=== PATIENT | male | born 1950 | race Caucasian/White ===

== ENCOUNTER 2018-07-14 09:18 | Outpatient (CLI) | payer MEDICARE, BC | END 2018-07-14 09:19 | disposition critical access hospital (66) | LOC: EMS 09:18 | PROVIDERS: ATTEND Surgery | DX: R07.9 Chest pain, unspecified (principal) | CPT/HCPCS: A0425; A0427 ==

== ENCOUNTER 2018-07-14 09:47 | Emergency (ER) | payer MEDICARE, BC ==
--- NOTE | 2018-07-14 09:57 | ED Physician Documentation ---
PD HPI CHEST PAIN - Stated complaint Stated Complaint: CP - Chief complaint Chief Complaint: Cardiac - History obtained from History obtained from: Patient - History of Present Illness Timing - onset: Enter time (0800), Today Timing - onset during: Rest Timing - duration: Minutes Timing - details: Abrupt onset, Now resolved Pain level max: 6 Pain level now: 2 Quality: Pressure, Tightness, Sharp Location: Substernal, Right chest Radiation: Back Improved by: Rest, ASA Worsened by: Inspiration, Movement Associated symptoms: No: Shortness of air, Diaphoresis, Nausea, Vomiting, Feeling faint / dizzy, General Weakness, Palpitations, Cough Similar symptoms before: Has not had sx before Recently seen: Not recently seen - Additional information Additional information: 67-year-old previously well male was sitting on his couch this morning when he developed right-sided chest pain. He states that his worse to take a deep breath and the pain radiated to his back. He states that he had been up at about 8:00 this morning was feeling well when he awoke and had this happen to him after he was up and about for his day. He denies any eating anything prior to the onset of the symptoms. He has not had the specific symptoms previously. He does rate the pain as a 6 on arrival to the emergency department. Patient is under a lot of stress because of the of his 's mother. He has been drinking more than usual and had a fair amount to drink last night. He has not had this reaction from drinking previously. He denies any gallbladder disease. Review of Systems Constitutional: denies: Fever, Chills, Myalgias Eyes: denies: Decreased vision Ears: denies: Ear pain Nose: denies: Rhinorrhea / runny nose, Congestion Throat: denies: Sore throat Cardiac: reports: Chest pain / pressure. denies: Palpitations, Pedal edema, Calf pain Respiratory: denies: Dyspnea, Cough, Wheezing GI: denies: Abdominal Pain, Abdominal Swelling, Nausea, Vomiting : denies: Dysuria, Frequency Skin: denies: Rash Musculoskeletal: denies: Neck pain, Back pain, Extremity pain Neurologic: denies: Generalized weakness, Focal weakness, Numbness PD PAST MEDICAL HISTORY - Past Medical History Cardiovascular: None Respiratory: None Endocrine/Autoimmune: None GI: None : None HEENT: None Psych: None Musculoskeletal: None Derm: None - Present Medications Home Medications: Ambulatory Orders Medication Instructions Recorded Confirmed No Known Home Medications 07/14/18 07/14/18 - Allergies Allergies/Adverse Reactions: Allergies Allergy/AdvReac Type Severity Reaction Status Date / Time No Known Drug Allergies Allergy Verified 07/14/18 09:53 PD ED PE NORMAL - Vitals Vital signs reviewed: Yes (hypertensive marked ) - General General: Alert and oriented X 3, No acute distress, Well developed/nourished - HEENT HEENT: Atraumatic, PERRL, EOMI - Neck Neck: Supple, no meningeal sign, No bony TTP - Cardiac Cardiac: RRR, No murmur - Respiratory Respiratory: No respiratory distress, Clear bilaterally - Abdomen Abdomen: Soft, Non tender - Back Back: No CVA TTP, No spinal TTP - Derm Derm: Normal color, Warm and dry, No rash - Extremities Extremities: No deformity, No edema - Neuro Neuro: Alert and oriented X 3, videotape operator 2-12 intact, No motor deficit, No sensory deficit, Normal speech Eye Opening: Spontaneous Motor: Obeys Commands Verbal: Oriented GCS Score: 15 - Psych Psych: Normal mood, Normal affect Results - Vitals Vitals: Vital Signs - 24 hr 07/14/18 07/14/18 07/14/18 09:48 11:18 12:23 Temperature 36.6 C 36.7 C 37.1 C Heart Rate 73 73 63 Respiratory 20 15 20 Rate Blood Pressure 153/109 H 148/89 H 145/95 H O2 Saturation 97 97 97 Oxygen O2 Source Room air - EKG (time done) 0949 Rhythm: NSR Ischemia: Normal ST segments Compare to prior EKG: Old EKG unavailable Computer interpretation: Agree with computer - Labs Labs: Laboratory Tests 07/14/18 07/14/18 07/14/18 10:30 10:30 10:30 WBC 6.0 RBC 5.00 Hgb 16.2 Hct 46.9 MCV 93.8 MCH 32.5 H MCHC 34.6 RDW 13.7 Plt Count 187 MPV 7.3 L Neut # (Auto) 4.4 Lymph # (Auto) 1.1 L Ector # (Auto) 0.5 Eos # (Auto) 0.0 Baso # (Auto) 0.0 Absolute Nucleated RBC 0.00 Nucleated RBC % 0.0 D-Dimer Sodium 136 Potassium 4.3 Chloride 103 Carbon Dioxide 24 Anion Gap 9.0 BUN 14 Creatinine 0.7 Estimated GFR (MDRD) 113 Glucose 109 H Calcium 8.9 Total Bilirubin 1.1 H AST 19 ALT 25 Alkaline Phosphatase 43 Troponin I < 0.04 Total Protein 6.7 Albumin 4.1 Globulin 2.6 Albumin/Globulin Ratio 1.6 Lipase 28 07/14/18 10:30 WBC RBC Hgb Hct MCV MCH MCHC RDW Plt Count MPV Neut # (Auto) Lymph # (Auto) Ector # (Auto) Eos # (Auto) Baso # (Auto) Absolute Nucleated RBC Nucleated RBC % D-Dimer < 200.0 L Sodium Potassium Chloride Carbon Dioxide Anion Gap BUN Creatinine Estimated GFR (MDRD) Glucose Calcium Total Bilirubin AST ALT Alkaline Phosphatase Troponin I Total Protein Albumin Globulin Albumin/Globulin Ratio Lipase - Rads (name of study) 2 veiw chest Radiology: Prelim report reviewed (Impression: Normal two-view chest radiography.), EMP read indepedently, See rad report Procedures - Bedside sono Bedside sono by EMP: With use of bedside ultrasound the right upper quadrant is imaged showing a sonographically nontender gallbladder without evidence of stone internally or thickening of the gallbladder wall. PD MEDICAL DECISION MAKING - ED course Complexity details: reviewed old records, reviewed results, re-evaluated patient, considered differential, d/w patient ED course: 67-year-old male with a history of right sided chest pain has resolved symptoms on arrival to the emergency department he has normal-appearing electrocardiogram and cardiac enzymes and a normal appearing chest x-ray. He did have an inspirational component to the pain. Patient offers further history and that he is under a significant amount of stress with his 's family having to deal with the of the patient's 's mother and the ramifications of this regarding the mother's long 's children and money. Departure - Departure Disposition: 01 Home, Self Care Clinical Impression: Atypical chest pain Condition: Stable Instructions: ED Stress React, ED Chest Pain Atypical Unkn Cause Follow-Up: Cielo Ordaz ARNP [Primary Care Provider] - Discharge Date/Time: 07/14/18 12:24
[2018-07-14] MEDS ORDERED: SODIUM CHLORIDE 0.9% 1,000 ML IV ONE (10:00)
--- NOTE | 2018-07-14 10:29 | XRAY Report ---
Reason: right sided chest pain Procedure Date: 07/14/2018 Accession Number: [id number] / [id number] Procedure: XR - Chest 2 View X-Ray CPT Code: 36575 FULL RESULT: EXAM: CHEST RADIOGRAPHY EXAM DATE: 07/14/2018 10:17 AM. CLINICAL HISTORY: Right sided chest pain. COMPARISON: None. TECHNIQUE: 2 views. FINDINGS: Lungs/Pleura: No focal opacities evident. No pleural effusion. No pneumothorax. Normal volumes. Mediastinum: Heart and mediastinal contours are unremarkable. Other: None. IMPRESSION: Normal 2-view chest radiography. [facility]
[2018-07-14 10:35] LABS: BASOPHILS % (AUTO) 0.6 %; EOSINOPHILS % (AUTO) 0.4 %; HGB - HEMOGLOBIN 16.2 g/dL (14.0-18.0); LYMPHOCYTES # (AUTO) 1.1 10^3/uL (1.5-3.5); LYMPHOCYTES % (AUTO) 17.6 %; MEAN CORPUSCULAR HEMOGLOBIN 32.5 pg (27.0-31.0); MEAN CORPUSCULAR HGB CONC 34.6 g/dL (32.0-36.0); MEAN CORPUSCULAR VOLUME 93.8 fL (80.0-94.0); MEAN PLATELET VOLUME 7.3 fL (7.4-11.4); MONOCYTES # (AUTO) 0.5 10^3/uL (0.0-1.0); MONOCYTES % (AUTO) 7.8 %; NEUTROPHILS # (AUTO) 4.4 10^3/uL (1.5-6.6); NEUTROPHILS % (AUTO) 73.6 %; PLT - PLATELET COUNT 187 10^3/uL (130-450); RED CELL DISTRIBUTION WIDTH 13.7 % (12.0-15.0)
[2018-07-14 10:49] LABS: ALBUMIN 4.1 g/dL (3.2-5.5); ALBUMIN/GLOBULIN RATIO 1.6 (1.0-2.2); BILIRUBIN,TOTAL 1.1 mg/dL (0.2-1.0); CALCIUM 8.9 mg/dL (8.5-10.3); CREATININE 0.7 mg/dL (0.6-1.2); TOTAL PROTEIN 6.7 g/dL (6.7-8.2)
[2018-07-14 12:24] VITALS: BP 145/95
== END 2018-07-14 12:24 | disposition home or self-care (01) ==
LOC: EDUNIT# → ED 09:47
DX: R07.89 Other chest pain (principal)
CPT/HCPCS: 36415; 71046; 80053; 83690; 84484; 85025; 85379; 93005; 96360; 99283; 99284

== ENCOUNTER 2020-02-18 07:51 | Outpatient (CLI) | payer MEDICARE, BC ==
[2020-02-18 15:41] LABS: BASOPHILS % (AUTO) 0.9 %; EOSINOPHILS # (AUTO) 0.1 10^3/uL (0.0-0.7); HGB - HEMOGLOBIN 15.8 g/dL (14.0-18.0); LYMPHOCYTES # (AUTO) 1.2 10^3/uL (1.5-3.5); LYMPHOCYTES % (AUTO) 35.9 %; MEAN CORPUSCULAR HEMOGLOBIN 31.2 pg (27.0-31.0); MEAN CORPUSCULAR HGB CONC 32.8 g/dL (32.0-36.0); MEAN CORPUSCULAR VOLUME 95.1 fL (80.0-94.0); MEAN PLATELET VOLUME 9.8 fL (7.4-11.4); MONOCYTES # (AUTO) 0.4 10^3/uL (0.0-1.0); MONOCYTES % (AUTO) 10.4 %; NEUTROPHILS # (AUTO) 1.7 10^3/uL (1.5-6.6); NEUTROPHILS % (AUTO) 50.2 %; PLT - PLATELET COUNT 232 10^3/uL (130-450); RED BLOOD COUNT 5.06 10^6/uL (4.70-6.10); RED CELL DISTRIBUTION WIDTH 13.8 % (12.0-15.0); WHITE BLOOD COUNT 3.5 x10^3/uL (4.8-10.8)
[2020-02-18 16:03] LABS: PSA TOTAL 2.7 ng/mL (0.000-2.000)
[2020-02-18 16:28] LABS: PSA FREE 0.28 ng/mL (0.16-2.81)
== END 2020-02-18 07:52 | disposition home or self-care (01) ==
LOC: LAB.S 07:51
PROVIDERS: ATTEND Registered Nurse
DX: E29.1 Testicular hypofunction (principal)
CPT/HCPCS: 36415; 81599; 84153; 84154; 84402; 84403; 85025

== ENCOUNTER 2023-02-20 08:03 | Outpatient (CLI) | payer MEDICARE, BC ==
--- NOTE | 2023-02-20 12:45 | Ultrasound Report ---
PROCEDURE: Aorta Screening INDICATIONS: AAA SCREENING TECHNIQUE: Real time scanning was performed of the aorta and iliac arteries, with image documentatio n. COMPARISON: None. FINDINGS: Aorta: Proximal aortic diameter measures 2.6 x 2.4 cm. Mid-aorta measures 1.8 x 1.7 cm. Distal aor tic diameter is 2.0 x 1.6 cm. Iliac arteries: Right common iliac artery measures 1.2 cm. Left common iliac artery measures 1.3 cm . IMPRESSION: No abdominal aortic aneurysm. Ectatic proximal aorta, consider 5 year follow-up. Reviewed by: Sammy Owens MD on 02/20/2023 12:44 PM PDT Approved by: Sammy Owens MD on 02/20/2023 12:44 PM PDT Station ID: [id number]
== END 2023-02-20 08:04 | disposition home or self-care (01) ==
LOC: DI 08:03
PROVIDERS: ATTEND Registered Nurse
DX: Z13.6 Encounter for screening for cardiovascular disorders (principal); I77.819 Aortic ectasia, unspecified site

== ENCOUNTER 2023-09-24 08:33 | Inpatient (IN) | payer MEDICARE, BC ==
[2023-09-24] MEDS ORDERED: MORPHINE 2 MG/ML CARPUJECT IVP STA (09:17)
[2023-09-24] MEDS ORDERED: SODIUM CHLORIDE 0.9% 1,000 ML IV STA ×2 (09:17→16:13)
[2023-09-24] MEDS ORDERED: ONDANSETRON 4 MG/2 ML VIAL IVP STA (09:17)
--- NOTE | 2023-09-24 09:20 | ED Physician Documentation ---
History of Present Illness - Stated complaint Stated Complaint: ABD PX - Chief complaint Chief Complaint: Abd Pain - Additonal information Additional information: Patient 72-year-old male presenting to the emergency department with chief com plaint abdominal pain. Presents accompanied by his with 1 day history epigastric abdominal pain that was associated with nausea vomiting. Pain began yesterday evening at approximately 8 PM. No other family members are experiencing similar symptoms. Reports pain kept him up most of the night and he did have an episode of nausea and vomiting this morning. Vomiting was nonbloody and nonbilious. He also had a normal color/normal caliber bowel movement this morning. He denies any chest pain, diaphoresis or shortness of breath associated with his symptoms. Denies any past surgical history. His only medication right now is testosterone cream and he reports 5 years of steady use for testosterone replacement therapy. Review of Systems Constitutional: denies: Fever Eyes: denies: Loss of vision Ears: denies: Loss of hearing Nose: denies: Rhinorrhea / runny nose Throat: denies: Dental pain / toothache Cardiac: denies: Chest pain / pressure Respiratory: denies: Dyspnea GI: reports: Abdominal Pain, Nausea, Vomiting : denies: Dysuria PD PAST MEDICAL HISTORY - Past Medical History Cardiovascular: None Respiratory: None Endocrine/Autoimmune: None GI: None : None HEENT: None Psych: None Musculoskeletal: None Derm: None - Past Surgical History Past Surgical History: Yes Ortho: Spine surgery - Present Medications Home Medications: Ambulatory Orders Medication Instructions Recorded Confirmed No Known Home Medications 07/14/18 07/14/18 - Allergies Allergies/Adverse Reactions: Allergies Allergy/AdvReac Type Severity Reaction Status Date / Time No Known Drug Allergies Allergy Verified 07/14/18 09:53 - Social History Does the pt smoke?: No Smoking Status: Never smoker PD ED PE NORMAL - Vitals Vital signs reviewed: Yes (WNL) - General General: Alert and oriented X 3, No acute distress - HEENT HEENT: Atraumatic - Neck Neck: Supple, no meningeal sign - Cardiac Cardiac: RRR, No gallop, Strong equal pulses - Respiratory Respiratory: No respiratory distress, Clear bilaterally - Abdomen Abdomen: Normal bowel sounds, Soft. No: Non tender (Epigastric tenderness) - Male Male : Deferred - Rectal Rectal: Deferred - Derm Derm: Normal color - Extremities Extremities: No deformity - Neuro Neuro: Alert and oriented X 3, water fabricator operator 2-12 intact, No motor deficit, Normal speech Results - Vitals Vitals: Vital Signs - 24 hr 09/24/23 09/24/23 09/24/23 09:07 11:46 13:00 Temperature 36.2 C L Heart Rate 89 77 80 Respiratory 15 18 18 Rate Blood Pressure 146/66 H 174/94 H 119/90 H O2 Saturation 98 98 96 09/24/23 09/24/23 09/24/23 15:36 16:26 20:15 Temperature 37.4 C 36.4 C L Heart Rate 90 86 76 Respiratory 18 18 18 Rate Blood Pressure 138/88 H 163/101 H 135/83 H O2 Saturation 97 95 96 09/24/23 09/25/23 09/25/23 22:00 00:00 02:00 Temperature Heart Rate 79 62 74 Respiratory 13 19 16 Rate Blood Pressure 146/76 H 109/75 139/94 H O2 Saturation 95 95 93 09/25/23 09/25/23 04:00 06:00 Temperature Heart Rate 60 65 Respiratory 17 16 Rate Blood Pressure 126/71 124/62 O2 Saturation 94 95 Oxygen O2 Source Room air - EKG (time done) 0935 EKG releavant findings:: EKG personally interpreted by author of this note. Relevant findings are: Sinus rhythm with rate 66 bpm. Normal axis. Parable prolonged at 223 ms. Normal QRS and QTc intervals. No ST segment elevations or T wave inversions. - Labs Labs: Laboratory Tests 09/24/23 09/24/23 09/24/23 09:33 09:33 09:33 WBC 7.7 RBC 4.91 Hgb 15.7 Hct 46.5 MCV 94.7 H MCH 32.0 H MCHC 33.8 RDW 13.1 Plt Count 199 MPV 9.2 Neut # (Auto) 6.9 H Lymph # (Auto) 0.4 L Meagher # (Auto) 0.4 Eos # (Auto) 0.0 Baso # (Auto) 0.0 Absolute Nucleated RBC 0.00 Nucleated RBC % 0.0 Sodium 136 Potassium 4.3 Chloride 103 Carbon Dioxide 26 Anion Gap 7.0 BUN 20 Creatinine 0.7 Estimated GFR (MDRD) 111 Glucose 141 H Lactic Acid 0.6 Calcium 9.3 Total Bilirubin 0.7 AST 14 ALT 20 Alkaline Phosphatase 35 L Troponin I High Sens Total Protein 6.8 Albumin 4.5 Globulin 2.3 Albumin/Globulin Ratio 2.0 Lipase 26 09/24/23 09/25/23 09/25/23 09:33 05:15 05:15 WBC 6.3 RBC 4.34 L Hgb 13.9 L Hct 41.0 L MCV 94.5 H MCH 32.0 H MCHC 33.9 RDW 13.0 Plt Count 176 MPV 9.4 Neut # (Auto) 4.4 Lymph # (Auto) 1.3 L Meagher # (Auto) 0.6 Eos # (Auto) 0.0 Baso # (Auto) 0.0 Absolute Nucleated RBC 0.00 Nucleated RBC % 0.0 Sodium 140 Potassium 3.8 Chloride 106 Carbon Dioxide 28 Anion Gap 6.0 BUN 15 Creatinine 0.8 Estimated GFR (MDRD) 96 Glucose 94 Lactic Acid Calcium 8.4 L Total Bilirubin AST ALT Alkaline Phosphatase Troponin I High Sens 2.3 Total Protein Albumin Globulin Albumin/Globulin Ratio Lipase PD Medical Decision Making - ED course Complexity details: reviewed old records, reviewed results, re-evaluated patient, d/w patient, d/w production consultant ED course: Patient 72-year-old male presenting to the emergency department with abdominal pain with associated nausea vomiting. Symptoms ongoing x 1 day. Denies previous symptoms in the past. On arrival to the emergency department, afebrile, hemodynamically stable. Notably had some epigastric tenderness but no guarding, rebound, rigidity or indications of peritonitis. Comprehensive labs obtained, generally within normal limits or nonactionable. No significant electrolyte abnormality or elevation in lactic acid. CT of the abdomen pelvis however demonstrates dilated loops of bowel with clear transition point consistent with small bowel obstruction. Results discussed with patient and family. NG tube placed. Started on maintenance fluids. He was given medication for pain control and monitor carefully after its administration. Additionally his care was discussed with Dr. Fermin, general surgery who evaluated the patient independently. Please see their documentation for further detail. At this time unfortunately there are no beds available at our facility or regionally. He will be boarded in the emergency department pending an appropriate MedSur bed. I will be signing him out to the oncoming physician, please see their documentation for further detail. Departure - Departure Disposition: 66 [facility] DC/Xfer Clinical Impression: SBO (small bowel obstruction) Forms: PCP List
[2023-09-24 09:39] LABS: BASOPHILS % (AUTO) 0.3 %; HCT - HEMATOCRIT 46.5 % (42.0-52.0); HGB - HEMOGLOBIN 15.7 g/dL (14.0-18.0); LYMPHOCYTES # (AUTO) 0.4 10^3/uL (1.5-3.5); MEAN CORPUSCULAR HGB CONC 33.8 g/dL (32.0-36.0); MEAN CORPUSCULAR VOLUME 94.7 fL (80.0-94.0); MEAN PLATELET VOLUME 9.2 fL (7.4-11.4); MONOCYTES # (AUTO) 0.4 10^3/uL (0.0-1.0); NEUTROPHILS # (AUTO) 6.9 10^3/uL (1.5-6.6); NEUTROPHILS % (AUTO) 89.3 %; PLT - PLATELET COUNT 199 10^3/uL (130-450); RED BLOOD COUNT 4.91 10^6/uL (4.70-6.10); RED CELL DISTRIBUTION WIDTH 13.1 % (12.0-15.0); WHITE BLOOD COUNT 7.7 x10^3/uL (4.8-10.8)
[2023-09-24 09:52] LABS: ALBUMIN 4.5 g/dL (3.2-5.5); BILIRUBIN,TOTAL 0.7 mg/dL (0.2-1.0); CALCIUM 9.3 mg/dL (8.5-10.3); CREATININE 0.7 mg/dL (0.6-1.3); POTASSIUM 4.3 mmol/L (3.5-4.5); TOTAL PROTEIN 6.8 g/dL (6.4-8.9)
--- NOTE | 2023-09-24 10:51 | CT Report ---
PROCEDURE: Abdomen/Pelvis W INDICATIONS: Epigastric abd pain CONTRAST: Omni 300 100ml TECHNIQUE: After the administration of intravenous contrast, a CT scan of the abdomen and pelvis was performed. Images were recorded and evaluated at appropriate window settings. Reformats: coronal and sagittal. F or radiation dose reduction, the following was used: automated exposure control, adjustment of mA and /or kV according to patient size. COMPARISON: Correlation is made with ultrasound, 09/22/2022. FINDINGS: Image quality: Excellent. Lung bases and heart: Unremarkable. Liver: No solid mass. Gallbladder and biliary tree: Within normal limits. Spleen: No splenomegaly. Pancreas: No pancreatic ductal dilation. Adrenals: No adrenal nodule. Kidneys and ureters: Mild bilateral hydronephrosis is seen. No cause of obstruction is seen. There is a pelvic phlebolith seen adjacent to the right distal ureter, yet not involving the distal ureter. T he kidneys demonstrate normal size and enhance symmetrically. Bowel and peritoneum: Dilated fluid-filled loops of small bowel can be seen proximally that measure u p to 3.2 cm. The distal small bowel loops are decompressed. There is a transition point seen within t he right lower quadrant, where thickened, hyperenhancing small bowel can be seen. No free air is seen. Minimal ascites is seen involving the right lower quadrant. No abscess is seen. Diverticulosis can be seen, without luis findings of active diverticulitis. No significant colonic abnormality is seen. Lymph nodes: No central or retroperitoneal adenopathy. Vessels: No infrarenal aortic aneurysm. PELVIS Reproductive organs: Unremarkable. Bladder: No abnormal wall thickening, accounting for underdistention. Pelvic lymph nodes: No pelvic adenopathy by size criteria. Bones: No aggressive osseous abnormality. Age-appropriate degenerative changes are seen. Other: There is a mild fat-containing left inguinal hernia. IMPRESSION: There is a small obstruction, with the transition point seen within the right lower quadrant, where t hickened, hyperenhancing small bowel can be seen. Mild bilateral hydronephrosis is seen, without a cause of hydronephrosis identified. Additional findings: Diverticulosis, without findings of active diverticulitis. Mild fat-containing left inguinal hernia Reviewed by: Tobi Stearns MD on 09/24/2023 9:50 AM [facility] Approved by: Tobi Stearns MD on 09/24/2023 9:50 AM [facility] Station ID: [id number]
[2023-09-24] MEDS ORDERED: LORazepam 2 MG/ML VIAL IVP STA (11:34)
[2023-09-24] MEDS ORDERED: iohexoL-300 100 ML VIAL IVP ONE (12:05)
--- NOTE | 2023-09-24 13:11 | XRAY Report ---
PROCEDURE: No-Charge 1V Abdomen INDICATIONS: NG Tube placement TECHNIQUE: 1 view of the abdomen were acquired. COMPARISON: Correlation is made with abdomen and pelvis CT, 09/24/2023. FINDINGS: Surgical changes and devices: The tip of the gastric tube can be seen overlying the fundus of the st omach. Bowel: No pneumoperitoneum. The bowel gas pattern is normal. Stool load within normal limits. Soft tissues: No masses; visualized solid organ contours appear normal in size. No suspicious abdom inal calcifications. Excreting contrast can be seen within the renal collecting systems. Bones: No suspicious bony abnormalities. IMPRESSION: The tip of the gastric tube can be seen overlying the fundus of the stomach. Reviewed by: Tobi Stearns MD on 09/24/2023 12:10 PM [facility] Approved by: Tobi Stearns MD on 09/24/2023 12:10 PM [facility] Station ID: [id number]
[2023-09-24] MEDS ORDERED: ONDANSETRON 4 MG/2 ML VIAL IVP PRN (16:13)
[2023-09-24] MEDS ORDERED: ACETAMINOPHEN 1,000 MG/100 ML 1,000 MG/100 ML BAG IV ONE (16:30)
[2023-09-24] MEDS ORDERED: PANTOPRAZOLE 40 MG TABLET PO SCH (17:00)
--- NOTE | 2023-09-24 18:09 | HISTORY & PHYSICAL EXAMINATION ---
Chief Complaint - Chief Complaint Chief Complaint: abdominal pain and nausea and vomiting. History of Present Illness - History Obtained From Records Reviewed: yes History obtained from: pt Exam Limitations: none - History of Present Illness HPI Comment/Other: abdominal pain yesterday with nausea and vomiting. small bm this am with flatus. no prior similar symptoms. no prior abdominal surgery. seen in ED. ngt placed. he feels very well now. no abdominal pain. here with his who feels well. History - Past Medical History Cardiovascular: reports: None Respiratory: reports: None Endocrine/Autoimmune: reports: None GI: reports: None : reports: None HEENT: reports: None Psych: reports: None Musculoskeletal: reports: None Derm: reports: None MRSA Hx?: No - Past Surgical History Ortho: reports: Spine surgery Meds/Allgy - Home Medications Home Medications: Ambulatory Orders Medication Instructions Recorded Confirmed No Known Home Medications 07/14/18 07/14/18 - Allergies Allergies/Adverse Reactions: Allergies Allergy/AdvReac Type Severity Reaction Status Date / Time No Known Drug Allergies Allergy Verified 07/14/18 09:53 Review of Systems - Other Findings Other Findings: 10 pt ros as above otherwise unremarkable Exam - Vital Signs Reviewed Vital Signs: Yes Vital Signs: Vital Signs x48h Temp Pulse Resp BP Pulse Ox 09/24/23 16:26 37.4 C 86 18 163/101 H 95 09/24/23 15:36 90 18 138/88 H 97 09/24/23 13:00 80 18 119/90 H 96 09/24/23 11:46 77 18 174/94 H 98 - Physical Exam General Appearance: positive: No acute distress, Alert Eyes Bilateral: positive: PERRL, EOMI ENT: positive: No signs of dehydration Neck: positive: No JVD, Trachea midline Respiratory: positive: No respiratory distress Cardiovascular: positive: Regular rate & rhythm Abdomen: positive: No distention Neurologic/Psychiatric: positive: Oriented x3 Conclusion/Plan - Problem List (1) Nausea & vomiting Conclusion/Plan: nausea and vomiting earlier today with pain starting yesterday. no prior similar symptoms and no prior surgery. he has a ngt in. scant dark output. he feels very well. ct scan ileus with 98% of his small bowel distended. normal appendix. I see no evidence of a bowel obstruction. we discussed he has a little extra preperitoneal fat at his left internal inguinal ring. no inguinal hernia clinically. ileus/ enteritis. agree with current care. ngt until talent acquisition associate in color and bowel activity has improved. - Lab Results Fish Bones: 09/24/23 09:33 09/24/23 09:33
[2023-09-24] MEDS ORDERED: KETOROLAC 15 MG/ML VIAL IVP STA (22:35)
[2023-09-25] MEDS ORDERED: HYDROmorphone 0.5 MG/0.5 ML SYRINGE IVP PRN (00:46)
[2023-09-25] MEDS ORDERED: LACTATED RINGERS 1,000 ML IV STA (00:47)
--- NOTE | 2023-09-25 00:50 | ED Physician Documentation ---
ED Addendum - Addendum Addendum: 09/25/23 00:48 The charge nurse on the floor states there anticipated midnight staffing called sick and so they are unable to accept the patient at this time. They should be able to in the morning. We will plan on boarding the patient longer in the ER. As such I ordered interval dosing of ketorolac and as needed dosing for Dilaudid. Already on order is pantoprazole, Zofran. I ordered a maintenance IV fluid of Ringer's lactate at 200 mL/h. A.m. labs had previously been ordered for CBC and chemistry panel. At this point the patient seems comfortable without any vomiting. NG tube in place. We will contact the hospitalist, morning shift for the floor.
[2023-09-25 05:34] LABS: BASOPHILS % (AUTO) 0.3 %; EOSINOPHILS % (AUTO) 0.6 %; HGB - HEMOGLOBIN 13.9 g/dL (14.0-18.0); LYMPHOCYTES # (AUTO) 1.3 10^3/uL (1.5-3.5); LYMPHOCYTES % (AUTO) 20.6 %; MEAN CORPUSCULAR HGB CONC 33.9 g/dL (32.0-36.0); MEAN CORPUSCULAR VOLUME 94.5 fL (80.0-94.0); MEAN PLATELET VOLUME 9.4 fL (7.4-11.4); MONOCYTES # (AUTO) 0.6 10^3/uL (0.0-1.0); MONOCYTES % (AUTO) 9.2 %; NEUTROPHILS # (AUTO) 4.4 10^3/uL (1.5-6.6); PLT - PLATELET COUNT 176 10^3/uL (130-450); RED BLOOD COUNT 4.34 10^6/uL (4.70-6.10); WHITE BLOOD COUNT 6.3 x10^3/uL (4.8-10.8)
[2023-09-25 05:59] LABS: CALCIUM 8.4 mg/dL (8.5-10.3); CREATININE 0.8 mg/dL (0.6-1.3); POTASSIUM 3.8 mmol/L (3.5-4.5)
[2023-09-25] MEDS: KETOROLAC 15 MG/ML VIAL IVP SCH ×3 (06:13→21:36)
--- NOTE | 2023-09-25 08:20 | ED Physician Documentation ---
ED Addendum - Addendum Addendum: 09/25/23 08:20 Patient continues to be boarded in the emergency department. Given IV hydration. Resting comfortably during my evaluation. Awaiting appropriate MedSurg bed. 09/25/23 17:[address] Frankel who graciously agrees to admit the patient for further evaluation and treatment.
[2023-09-25] MEDS ORDERED: ENOXAPARIN 40 MG/0.4 ML SYRINGE SUBQ SCH (09:00)
[2023-09-25] MEDS ORDERED: D5.45NS W/20 MEQ KCL 1,000 ML IV STA (09:27)
--- NOTE | 2023-09-25 09:33 | HISTORY & PHYSICAL EXAMINATION ---
Chief Complaint - Chief Complaint Chief Complaint: Abdominal Pain History of Present Illness - Admitted From Admitted From:: Emergency room. - History of Present Illness HPI Comment/Other: Mr. Tan a 72-year-old male who presents to the emergency room with a chief complaint of abdominal pain. Patient reports that the pain began yesterday evening and in the morning he started to vomit. He denies fevers and chills. He denies chest pain. He has no other complaints at this time. CT of abdomen and abdomen pelvis revealed a small bowel obstruction with a transition point seen within the right lower quadrant. History - Past Medical History Cardiovascular: reports: None Respiratory: reports: None Endocrine/Autoimmune: reports: None GI: reports: None : reports: None HEENT: reports: None Psych: reports: None Musculoskeletal: reports: None Derm: reports: None MRSA Hx?: No - Past Surgical History Ortho: reports: Spine surgery Meds/Allgy - Home Medications Home Medications: Ambulatory Orders Medication Instructions Recorded Confirmed No Known Home Medications 07/14/18 07/14/18 - Allergies Allergies/Adverse Reactions: Allergies Allergy/AdvReac Type Severity Reaction Status Date / Time No Known Drug Allergies Allergy Verified 07/14/18 09:53 Review of Systems - Gastrointestinal Gastrointestinal: reports: Abdominal pain, Abdominal distention Exam - Vital Signs Vital Signs: Vital Signs x48h Pulse Resp BP Pulse Ox 09/25/23 09:03 84 18 137/92 H 96 09/25/23 09:00 71 16 164/90 H 96 09/25/23 06:00 65 16 124/62 95 09/25/23 04:00 60 17 126/71 94 09/25/23 02:00 74 16 139/94 H 93 - Physical Exam General Appearance: positive: No acute distress, Moderate distress Eyes Bilateral: positive: Normal inspection, PERRL, EOMI ENT: positive: ENT inspection nml Neck: positive: Nml inspection, Thyroid nml, No JVD, Lymphadenopathy (R) Respiratory: positive: Chest non-tender, No respiratory distress, Breath sounds nml, Wheezes Cardiovascular: positive: Regular rate & rhythm, No murmur, No gallop Abdomen: positive: Non-tender, No organomegaly Skin: positive: Color nml Extremities: positive: Non-tender Neurologic/Psychiatric: positive: Oriented x3 Conclusion/Plan - Problem List (1) SBO (small bowel obstruction) Conclusion/Plan: Mr. Urias will be admitted to the hospital and treated with gastric decompression with a nasogastric tube. Tube to be placed to intermittent suction. Fluid hydration with D5 half-normal saline with 20 mill equivalents of potassium at 110 mL/h.DVT prophylaxis with heparin 5000 units twice daily - Lab Results Fish Bones: 09/25/23 05:15 09/25/23 05:15
[2023-09-25] MEDS: SODIUM CHLORIDE FLUSH 0.9% 10 ML SYRINGE IVP PRN ×2 (10:39→15:02)
--- NOTE | 2023-09-25 10:52 | PROVIDER PROGRESS NOTE ---
Subjective - General Admit Date: 09/25/23 - Other Other Information/Narrative: NG in place with dark, bilious output. Feeling "much better" this AM. No nausea at this time. Pain 09/27. Denies flatus or BM today. Objective - Patient Data Reviewed Vital Signs: Yes Vital Signs: Vital Signs x48h Temp Pulse Pulse Resp BP BP Pulse Ox 09/25/23 09:48 37.2 C 75 16 143/92 H 95 09/25/23 09:03 84 18 137/92 H 96 09/25/23 09:00 71 16 164/90 H 96 09/25/23 06:00 65 16 124/62 95 09/25/23 04:00 60 17 126/71 94 Weight: Weight 09/23/23 09/24/23 09/25/23 23:59 23:59 23:59 Weight (kg) 77.111 kg 79 kg Intake & Output: Intake and Output Totals x24h 09/23/23 09/24/23 09/25/23 23:59 23:59 23:59 Intake Total 1120 1980 Output Total 750 Balance 1120 1230 - Lab Results Lab Results: 09/25/23 05:15 09/25/23 05:15 Other Lab Results: Lab Results x24hrs 09/25/23 09/25/23 Range/Units 05:15 05:15 WBC 6.3 (4.8-10.8) x10^3/uL RBC 4.34 L (4.70-6.10) 10^6/uL Hgb 13.9 L (14.0-18.0) g/dL Hct 41.0 L (42.0-52.0) % MCV 94.5 H (80.0-94.0) fL MCH 32.0 H (27.0-31.0) pg MCHC 33.9 (32.0-36.0) g/dL RDW 13.0 (12.0-15.0) % Plt Count 176 (130-450) 10^3/uL MPV 9.4 (7.4-11.4) fL Neut # (Auto) 4.4 (1.5-6.6) 10^3/uL Lymph # (Auto) 1.3 L (1.5-3.5) 10^3/uL [place] # (Auto) 0.6 (0.0-1.0) 10^3/uL Eos # (Auto) 0.0 (0.0-0.7) 10^3/uL Baso # (Auto) 0.0 (0.0-0.1) 10^3/uL Absolute Nucleated RBC 0.00 x10^3/uL Nucleated RBC % 0.0 /100WBC Sodium 140 (135-145) mmol/L Potassium 3.8 (3.5-4.5) mmol/L Chloride 106 (101-111) mmol/L Carbon Dioxide 28 (21-32) mmol/L Anion Gap 6.0 (6-13) BUN 15 (6-20) mg/dL Creatinine 0.8 (0.6-1.3) mg/dL Estimated GFR (MDRD) 96 (>89) Glucose 94 (74-104) mg/dL Calcium 8.4 L (8.5-10.3) mg/dL - Imaging Results Radiology Imaging: positive: Final report received - Current Medications Current Medications: Current Medications Generic Name Dose Route Start Last Admin Trade Name Freq PRN Reason Stop Dose Admin Potassium Chloride/Dextrose/Sod Cl 1,000 mls @ 110 mls/hr 09/25/23 09:27 09/25/23 10:39 D5.45ns W/20 Meq Kcl IV 09/25/23 18:32 110 mls/hr .Q9H6M STA Administration Ketorolac Tromethamine 15 mg 09/25/23 06:00 09/25/23 06:13 Ketorolac 15 Mg/Ml Vial IVP 09/30/23 05:59 15 mg Q8H TACO Administration Sodium Chloride 10 ml 09/25/23 09:15 09/25/23 10:39 Sodium Chloride Flush 0.9% 10 Ml Syringe IVP 10 ml PRN PRN Administration NEEDED PER PROVIDER ORDERS - Physical Exam General Appearance: positive: No acute distress Eyes Bilateral: positive: PERRL, EOMI, Other (NG in place with bilious output) Neck: positive: Trachea midline Respiratory: positive: No respiratory distress Cardiovascular: positive: Regular rate & rhythm Abdomen: positive: No distention, Tenderness (very slight periumbilical tenderness to deep palpation, otherwise non tender.). negative: Guarding, Rebound Skin: positive: No rash Extremities: positive: Full ROM Neurologic/Psychiatric: positive: Oriented x3 Impression/Plan - Problem List Problem List: 72 y/o M with: 1. ileus/gastroenteritis vs small bowel obstruction - feeling much better with NG in place - no flatus or BM today - no history of prior surgery. No reason for adhesive disease - consider clamping NG and PO trial this PM or tomorrow AM. If he does not tolerate this, I would recommend gastrograffin small bowel study. - Agree with PPI for GI ppx. Thank you for consulting surgery in the care of this patient. I will continue to follow closely.
[2023-09-25] MEDS: PANTOPRAZOLE 40 MG VIAL IVP SCH (10:54)
[2023-09-25] MEDS: HEPARIN 5,000 UNIT/ML VIAL SUBQ SCH ×2 (11:29→21:35)
[2023-09-25] MEDS: PHENOL THROAT SPRAY 177 ML MM PRN ×2 (11:31→15:14)
[2023-09-25] MEDS: SODIUM CHLORIDE FLUSH 0.9% 10 ML SYRINGE IVP SCH (17:26)
[2023-09-26] MEDS: SODIUM CHLORIDE FLUSH 0.9% 10 ML SYRINGE IVP SCH ×3 (00:11→21:51)
[2023-09-26 05:42] LABS: BASOPHILS % (AUTO) 0.3 %; EOSINOPHILS # (AUTO) 0.1 10^3/uL (0.0-0.7); EOSINOPHILS % (AUTO) 1.4 %; HCT - HEMATOCRIT 41.6 % (42.0-52.0); HGB - HEMOGLOBIN 14.3 g/dL (14.0-18.0); LYMPHOCYTES # (AUTO) 1.3 10^3/uL (1.5-3.5); LYMPHOCYTES % (AUTO) 23.1 %; MEAN CORPUSCULAR HEMOGLOBIN 32.4 pg (27.0-31.0); MEAN CORPUSCULAR HGB CONC 34.4 g/dL (32.0-36.0); MEAN CORPUSCULAR VOLUME 94.3 fL (80.0-94.0); MEAN PLATELET VOLUME 9.1 fL (7.4-11.4); MONOCYTES # (AUTO) 0.5 10^3/uL (0.0-1.0); MONOCYTES % (AUTO) 9.3 %; NEUTROPHILS # (AUTO) 3.8 10^3/uL (1.5-6.6); NEUTROPHILS % (AUTO) 65.6 %; PLT - PLATELET COUNT 166 10^3/uL (130-450); RED BLOOD COUNT 4.41 10^6/uL (4.70-6.10); RED CELL DISTRIBUTION WIDTH 13.2 % (12.0-15.0); WHITE BLOOD COUNT 5.7 x10^3/uL (4.8-10.8)
[2023-09-26 05:50] LABS: CALCIUM 8.6 mg/dL (8.5-10.3); CREATININE 0.8 mg/dL (0.6-1.3); POTASSIUM 3.7 mmol/L (3.5-4.5)
[2023-09-26] MEDS: KETOROLAC 15 MG/ML VIAL IVP SCH ×3 (06:10→21:50)
--- NOTE | 2023-09-26 07:20 | PROVIDER PROGRESS NOTE ---
Subjective - General Admit Date: 09/25/23 - Other Other Information/Narrative: Minimal pain this AM. No n/v. No flatus or BM since admission. Minimal out of bed, except to bathroom yesterday. Objective - Patient Data Vital Signs: Vital Signs x48h Temp Pulse Resp BP Pulse Ox 09/25/23 23:39 37.1 C 70 20 129/76 94 Weight: Weight 09/24/23 09/25/23 09/26/23 23:59 23:59 23:59 Weight (kg) 77.111 kg 79 kg Intake & Output: Intake and Output Totals x24h 09/24/23 09/25/23 09/26/23 23:59 23:59 23:59 Intake Total 1120 3000 Output Total 2025 900 Balance 1120 975 -900 - Lab Results Lab Results: 09/26/23 05:19 09/26/23 05:19 Other Lab Results: Lab Results x24hrs 09/26/23 09/26/23 Range/Units 05:19 05:19 WBC 5.7 (4.8-10.8) x10^3/uL RBC 4.41 L (4.70-6.10) 10^6/uL Hgb 14.3 (14.0-18.0) g/dL Hct 41.6 L (42.0-52.0) % MCV 94.3 H (80.0-94.0) fL MCH 32.4 H (27.0-31.0) pg MCHC 34.4 (32.0-36.0) g/dL RDW 13.2 (12.0-15.0) % Plt Count 166 (130-450) 10^3/uL MPV 9.1 (7.4-11.4) fL Neut # (Auto) 3.8 (1.5-6.6) 10^3/uL Lymph # (Auto) 1.3 L (1.5-3.5) 10^3/uL [place] # (Auto) 0.5 (0.0-1.0) 10^3/uL Eos # (Auto) 0.1 (0.0-0.7) 10^3/uL Baso # (Auto) 0.0 (0.0-0.1) 10^3/uL Absolute Nucleated RBC 0.00 x10^3/uL Nucleated RBC % 0.0 /100WBC Sodium 142 (135-145) mmol/L Potassium 3.7 (3.5-4.5) mmol/L Chloride 106 (101-111) mmol/L Carbon Dioxide 29 (21-32) mmol/L Anion Gap 7.0 (6-13) BUN 14 (6-20) mg/dL Creatinine 0.8 (0.6-1.3) mg/dL Estimated GFR (MDRD) 96 (>89) Glucose 90 (74-104) mg/dL Calcium 8.6 (8.5-10.3) mg/dL - Current Medications Current Medications: Current Medications Generic Name Dose Route Start Last Admin Trade Name Freq PRN Reason Stop Dose Admin Heparin Sodium (Porcine) 5,000 unit 09/25/23 11:00 09/25/23 21:35 Heparin 5,000 Unit/Ml Vial SUBQ 5,000 unit BID TACO Administration Ketorolac Tromethamine 15 mg 09/25/23 06:00 09/26/23 06:10 Ketorolac 15 Mg/Ml Vial IVP 09/30/23 05:59 15 mg Q8H TACO Administration Pantoprazole Sodium 40 mg 09/25/23 09:00 09/25/23 10:54 Pantoprazole 40 Mg Vial IVP 40 mg DAILY TACO Administration Phenol/Menthol 2 sprays 09/25/23 11:12 09/25/23 15:14 Phenol Throat [place] 177 Ml MM 2 sprays Q2HR PRN Administration Throat Pain Sodium Chloride 10 ml 09/25/23 09:15 09/25/23 15:02 Sodium Chloride Flush 0.9% 10 Ml Syringe IVP 10 ml PRN PRN Administration NEEDED PER PROVIDER ORDERS Sodium Chloride 10 ml 09/25/23 17:00 09/26/23 00:11 Sodium Chloride Flush 0.9% 10 Ml Syringe IVP 10 ml 0100,0900,1700 TACO Administration - Physical Exam General Appearance: positive: No acute distress Eyes Bilateral: positive: EOMI ENT: positive: No signs of dehydration, Other (NG with 700mL out yesterday.) Neck: positive: Trachea midline Respiratory: positive: No respiratory distress Cardiovascular: positive: Regular rate & rhythm Abdomen: negative: No distention, Tenderness, Guarding, Rebound Skin: positive: No rash Extremities: positive: Non-tender, Full ROM Neurologic/Psychiatric: positive: Oriented x3 Impression/Plan - Problem List Problem List: 72 y/o M with: 1. ileus/gastroenteritis vs small bowel obstruction - NG remains in place with 700mL out yesterday - no flatus or BM since admission - no history of prior surgery. No reason for adhesive disease - Clamp NG and PO trial today. If he does not tolerate this, I would recommend gastrograffin small bowel study. - recommend increase activity today. - Agree with PPI for GI ppx. Thank you for consulting surgery in the care of this patient. I will continue to follow closely.
--- NOTE | 2023-09-26 09:03 | PROVIDER PROGRESS NOTE ---
Subjective - Prog Note Date Prog Note Date: 09/26/23 Prog Note Time: 08:58 - Subjective Pt reports feeling: Improved (No acute overnight events. Patient resting at bedside with present. He reports he is feeling well today, denies nausea or physical pain at this time.) Current Medications - Current Medications Current Medications: Active Medications Heparin Sodium (Porcine) (Heparin 5,000 Unit/Ml Vial) 5,000 unit SUBQ BID [facility] Last Admin: 09/25/23 21:35 Dose: 5,000 unit Hydromorphone HCl (Hydromorphone 0.5 Mg/0.5 Ml Syringe) 0.5 mg IVP Q4H PRN PRN Reason: PAIN 5-7 Ketorolac Tromethamine (Ketorolac 15 Mg/Ml Vial) 15 mg IVP Q8H [facility] Stop: 09/30/23 05:59 Last Admin: 09/26/23 06:10 Dose: 15 mg Ondansetron HCl (Ondansetron 4 Mg/2 Ml Vial) 4 mg IVP Q6HR PRN PRN Reason: Nausea / Vomiting Pantoprazole Sodium (Pantoprazole 40 Mg Vial) 40 mg IVP DAILY [facility] Last Admin: 09/25/23 10:54 Dose: 40 mg Phenol/Menthol (Phenol Throat [place] 177 Ml) 2 sprays MM Q2HR PRN PRN Reason: Throat Pain Last Admin: 09/25/23 15:14 Dose: 2 sprays Sodium Chloride (Sodium Chloride Flush 0.9% 10 Ml Syringe) 10 ml IVP PRN PRN PRN Reason: NEEDED PER PROVIDER ORDERS Last Admin: 09/25/23 15:02 Dose: 10 ml Sodium Chloride (Sodium Chloride Flush 0.9% 10 Ml Syringe) 10 ml IVP 0100,0900,1700 [facility] Last Admin: 09/26/23 00:11 Dose: 10 ml No Known Home Medications 07/14/18 Objective - Vital Signs/Intake & Output Reviewed Vital Signs: Yes Vital Signs: Vital Signs x48h Temp Pulse Resp BP Pulse Ox 09/26/23 07:57 37.3 C 79 16 141/79 H 94 Intake & Output: Intake & Output 09/23/23 09/24/23 09/25/23 09/26/23 23:59 23:59 23:59 23:59 Intake Total 1120 3000 Output Total 2025 900 Balance 1120 975 -900 - Objective General Appearance: positive: No acute distress Eyes Bilateral: positive: No lid inflammation, Conjunctivae nml ENT: positive: Other (NG tube in place) Neck: positive: Nml inspection Respiratory: positive: Chest non-tender, Breath sounds nml Cardiovascular: positive: Regular rate & rhythm Abdomen: positive: Non-tender, No distention, Other (Soft, no masses. Hypoactive bowel sounds.) Skin: positive: Warm, Dry, Other (No rashes, ecchymosis) Neurologic/Psychiatric: positive: Oriented x3, Other (Pleasant affect, calm and cooperative) - Lab Results Fish Bones: 09/26/23 05:19 09/26/23 05:19 Other Labs: Lab Results x24hrs 09/26/23 09/26/23 Range/Units 05:19 05:19 WBC 5.7 (4.8-10.8) x10^3/uL RBC 4.41 L (4.70-6.10) 10^6/uL Hgb 14.3 (14.0-18.0) g/dL Hct 41.6 L (42.0-52.0) % MCV 94.3 H (80.0-94.0) fL MCH 32.4 H (27.0-31.0) pg MCHC 34.4 (32.0-36.0) g/dL RDW 13.2 (12.0-15.0) % Plt Count 166 (130-450) 10^3/uL MPV 9.1 (7.4-11.4) fL Neut # (Auto) 3.8 (1.5-6.6) 10^3/uL Lymph # (Auto) 1.3 L (1.5-3.5) 10^3/uL [place] # (Auto) 0.5 (0.0-1.0) 10^3/uL Eos # (Auto) 0.1 (0.0-0.7) 10^3/uL Baso # (Auto) 0.0 (0.0-0.1) 10^3/uL Absolute Nucleated RBC 0.00 x10^3/uL Nucleated RBC % 0.0 /100WBC Sodium 142 (135-145) mmol/L Potassium 3.7 (3.5-4.5) mmol/L Chloride 106 (101-111) mmol/L Carbon Dioxide 29 (21-32) mmol/L Anion Gap 7.0 (6-13) BUN 14 (6-20) mg/dL Creatinine 0.8 (0.6-1.3) mg/dL Estimated GFR (MDRD) 96 (>89) Glucose 90 (74-104) mg/dL Calcium 8.6 (8.5-10.3) mg/dL - Diagnostic Imaging Diagnostic Imaging Results: positive: Final report reviewed, See rad report ABX Reporting Has patient been on IV antibiotics over the past 48 hours?: No Assessment/Plan - Problem List (1) SBO (small bowel obstruction) Impression: No BM/flatus today. CT a/p reveals small bowel obstruction with a transition point within the RLQ. Etiology is unknown, suspected ileus/gastroenteritis as he has no hx abdominal surgery to indicate adhesions, no concerning ana or/malignancy seen on CT. Per general surgery, will clamp NG tube today and start PO trial. If he does not tolerate this we will start gastrograffin small bowel study. Start clear liquid diet. Pain well controlled on scheduled ketorolac and prn hydromorphone. Continue pantoprazole for GI prophylaxis, heparin bid for DVT prophylaxis. (2) Nausea & vomiting Impression: No nausea/vomiting at this time, continue zofran prn.
[2023-09-26] MEDS: HEPARIN 5,000 UNIT/ML VIAL SUBQ SCH ×2 (09:15→21:50)
[2023-09-26] MEDS: PANTOPRAZOLE 40 MG VIAL IVP SCH (09:32)
[2023-09-26] MEDS: SODIUM CHLORIDE FLUSH 0.9% 10 ML SYRINGE IVP PRN (09:32)
[2023-09-26] MEDS ORDERED: BENZOCAINE/MENTHOL LOZENGE MM PRN (15:06)
[2023-09-26 16:08] VITALS: O2SAT 96
[2023-09-27] MEDS: KETOROLAC 15 MG/ML VIAL IVP SCH ×2 (05:45→05:47)
[2023-09-27] MEDS: SODIUM CHLORIDE FLUSH 0.9% 10 ML SYRINGE IVP SCH ×2 (05:46→08:40)
[2023-09-27 05:56] LABS: BASOPHILS % (AUTO) 0.9 %; EOSINOPHILS # (AUTO) 0.2 10^3/uL (0.0-0.7); EOSINOPHILS % (AUTO) 3.3 %; HCT - HEMATOCRIT 39.2 % (42.0-52.0); HGB - HEMOGLOBIN 13.2 g/dL (14.0-18.0); LYMPHOCYTES # (AUTO) 1.5 10^3/uL (1.5-3.5); LYMPHOCYTES % (AUTO) 32.6 %; MEAN CORPUSCULAR HEMOGLOBIN 31.7 pg (27.0-31.0); MEAN CORPUSCULAR HGB CONC 33.7 g/dL (32.0-36.0); MEAN CORPUSCULAR VOLUME 94.2 fL (80.0-94.0); MEAN PLATELET VOLUME 9.6 fL (7.4-11.4); MONOCYTES # (AUTO) 0.5 10^3/uL (0.0-1.0); MONOCYTES % (AUTO) 11.5 %; NEUTROPHILS # (AUTO) 2.3 10^3/uL (1.5-6.6); NEUTROPHILS % (AUTO) 51.5 %; PLT - PLATELET COUNT 161 10^3/uL (130-450); RED BLOOD COUNT 4.16 10^6/uL (4.70-6.10); RED CELL DISTRIBUTION WIDTH 12.8 % (12.0-15.0); WHITE BLOOD COUNT 4.5 x10^3/uL (4.8-10.8)
[2023-09-27 06:19] LABS: CALCIUM 8.7 mg/dL (8.5-10.3); CREATININE 0.7 mg/dL (0.6-1.3); POTASSIUM 3.8 mmol/L (3.5-4.5)
--- NOTE | 2023-09-27 07:26 | PROVIDER PROGRESS NOTE ---
Subjective - General Admit Date: 09/25/23 - Other Other Information/Narrative: Patient feeling well this AM. Denies pain. +ambulation. +void. +flatus. Tolerating full liquids well. Terril "a little full" last night but denies nausea or pain. Excited to possibly go home today. Objective - Patient Data Reviewed Vital Signs: Yes Vital Signs: Vital Signs x48h Temp Pulse Resp BP Pulse Ox 09/26/23 23:41 36.7 C 61 16 120/72 96 Weight: Weight 09/25/23 09/26/23 09/27/23 23:59 23:59 23:59 Weight (kg) 79 kg Intake & Output: Intake and Output Totals x24h 09/25/23 09/26/23 09/27/23 23:59 23:59 23:59 Intake Total 3000 1700 100 Output Total 2025 900 Balance 975 800 100 - Lab Results Lab Results: 09/27/23 05:24 09/27/23 05:24 Other Lab Results: Lab Results x24hrs 09/27/23 09/27/23 Range/Units 05:24 05:24 WBC 4.5 L (4.8-10.8) x10^3/uL RBC 4.16 L (4.70-6.10) 10^6/uL Hgb 13.2 L (14.0-18.0) g/dL Hct 39.2 L (42.0-52.0) % MCV 94.2 H (80.0-94.0) fL MCH 31.7 H (27.0-31.0) pg MCHC 33.7 (32.0-36.0) g/dL RDW 12.8 (12.0-15.0) % Plt Count 161 (130-450) 10^3/uL MPV 9.6 (7.4-11.4) fL Neut # (Auto) 2.3 (1.5-6.6) 10^3/uL Lymph # (Auto) 1.5 (1.5-3.5) 10^3/uL [place] # (Auto) 0.5 (0.0-1.0) 10^3/uL Eos # (Auto) 0.2 (0.0-0.7) 10^3/uL Baso # (Auto) 0.0 (0.0-0.1) 10^3/uL Absolute Nucleated RBC 0.00 x10^3/uL Nucleated RBC % 0.0 /100WBC Sodium 140 (135-145) mmol/L Potassium 3.8 (3.5-4.5) mmol/L Chloride 106 (101-111) mmol/L Carbon Dioxide 28 (21-32) mmol/L Anion Gap 6.0 (6-13) BUN 13 (6-20) mg/dL Creatinine 0.7 (0.6-1.3) mg/dL Estimated GFR (MDRD) 111 (>89) Glucose 103 (74-104) mg/dL Calcium 8.7 (8.5-10.3) mg/dL - Current Medications Current Medications: Current Medications Generic Name Dose Route Start Last Admin Trade Name Freq PRN Reason Stop Dose Admin Heparin Sodium (Porcine) 5,000 unit 09/25/23 11:00 09/26/23 21:50 Heparin 5,000 Unit/Ml Vial SUBQ 5,000 unit BID TACO Administration Ketorolac Tromethamine 15 mg 09/25/23 06:00 09/27/23 05:47 Ketorolac 15 Mg/Ml Vial IVP 09/30/23 05:59 Not Given Q8H TACO Pantoprazole Sodium 40 mg 09/25/23 09:00 09/26/23 09:32 Pantoprazole 40 Mg Vial IVP 40 mg DAILY TACO Administration Phenol/Menthol 2 sprays 09/25/23 11:12 09/25/23 15:14 Phenol Throat [place] 177 Ml MM 2 sprays Q2HR PRN Administration Throat Pain Sodium Chloride 10 ml 09/25/23 09:15 09/26/23 09:32 Sodium Chloride Flush 0.9% 10 Ml Syringe IVP 10 ml PRN PRN Administration NEEDED PER PROVIDER ORDERS Sodium Chloride 10 ml 09/25/23 17:00 09/27/23 05:46 Sodium Chloride Flush 0.9% 10 Ml Syringe IVP 10 ml 0100,0900,1700 TACO Administration - Physical Exam General Appearance: positive: No acute distress, Alert Eyes Bilateral: positive: PERRL, EOMI ENT: positive: No signs of dehydration Neck: positive: Trachea midline Respiratory: positive: No respiratory distress Cardiovascular: positive: Regular rate & rhythm Abdomen: positive: Non-tender, No distention. negative: Guarding, Rebound Extremities: positive: Non-tender, Full ROM Neurologic/Psychiatric: positive: Oriented x3 Impression/Plan - Problem List Problem List: 72 y/o M with: 1. ileus/gastroenteritis vs small bowel obstruction - NG removed yesterday, tolerating full liquids, adat to regular this AM. If able to tolerate breakfast/lunch without recurrent symptoms, ok to discharge home this afternoon from surgery standpoint - + flatus, no BM since admission - no history of prior surgery. No reason for adhesive disease - Agree with PPI for GI ppx. Thank you for consulting surgery in the care of this patient. I will continue to follow closely.
[2023-09-27 07:52] VITALS: BP 138/83
[2023-09-27] MEDS: PANTOPRAZOLE 40 MG VIAL IVP SCH (08:39)
[2023-09-27] MEDS: HEPARIN 5,000 UNIT/ML VIAL SUBQ SCH (08:40)
--- NOTE | 2023-09-27 14:28 | Discharge Plan ---
Discharge Plan Problem Reviewed?: Yes Disposition: Home, Self Care Condition: Fair Diet: Regular (low residue) Activity Restrictions: Activity as Tolerated Shower Restrictions: No Driving Restrictions: No Instruction Topics: Diet Low Residue Health Concerns: You presented to the emergency room on September 24 because of increasing abdominal pain that started the evening of September 23. It lasted all night long while you try to sleep and on the morning of the he started having severe nausea, vomiting. You came to the emergency room and we find you to have a partial bowel obstruction of the small bowel. We usually associate this with people who did previous abdominal surgery because previous abdominal surgery because of scarring and adhesions. The adhesions then because bowel obstructions. However you have not had any previous abdominal surgery. So than the list of this could be small bowel disease, inflammation from other sources, or even colon cancer. But you have no signs and symptoms of colon cancer and your CAT scan does not show anything other than the dilated small bowel. We placed an NG in your nose and removed the fluid that was remaining in your stomach. On its own your bowels gradually started to move. We were able to start you on a clear liquid diet and advance her diet and you have been doing well. General surgery was able to see you. You did not need surgery. Plan of Treatment: Please see your primary care provider in follow-up. In the next 1 to 2 weeks. We would recommend a low residue, low fiber diet for the next couple of weeks You want to see your primary care provider to see if there is any further studies that you need to get done if you have more symptoms. For instance enteroclysis or small bowel follow-through could be ordered if you continue to have symptoms. Since this is in your small bowel, a colonoscopy or upper endoscopy cannot reach this area. Care Goals: To go back to your previous activities and diet Assessment: is at the bedside. Very strong advocate for her . He is alert, oriented to person, place, situation and promises to follow through No Smoking: If you smoke, Please STOP! Call for help.
--- NOTE | 2023-09-27 14:35 | DISCHARGE SUMMARY ---
"Discharge Summary Admit Date: 09/25/23 Discharge Date: 09/27/23 Discharging Provider: Christina Cobb MD Primary Care Provider: Cielo Sushma Code Status: Attempt Resuscitation Condition at Discharge: Fair Discharge Disposition: 01 Home, Self Care - DIAGNOSES Discharge Diagnoses with Status of Each Condition: 1. Small bowel obstruction 2. Nausea and vomiting - HPI History of Present Illness: Mr. Tan a 72-year-old male who presents to the emergency room with a chief complaint of abdominal pain. Patient reports that the pain began yesterday evening and in the morning he started to vomit. He denies fevers and chills. He denies chest pain. He has no other complaints at this time. CT of abdomen and abdomen pelvis revealed a small bowel obstruction with a transition point seen within the right lower quadrant. - Past Medical History Cardiovascular: reports: None Respiratory: reports: None Endocrine/Autoimmune: reports: None GI: reports: None : reports: None HEENT: reports: None Psych: reports: None Musculoskeletal: reports: None Derm: reports: None MRSA Hx?: No - CONSULTS | PROCEDURES Procedures: Abdomen and pelvis CT has dilated fluid-filled loops of small bowel seen proximately that measure up to 3.2 cm. Distal small bowel is decompressed. Transition point seen within the right lower quadrant where thickened hyperenhancing small bowel could be seen. No free air. Minimal ascites. No abscess. Diverticulosis without diverticulitis. No mesenteric lymph nodes. Mild bilateral hydronephrosis seen without cause of hydronephrosis identified. - HOSPITAL COURSE Hospital Course: Patient was admitted inpatient status and placed on MedSurg. NG tube had been placed and copious amounts of brown liquid fluid was removed. There was immediate improvement in pain and distention. He had the NG tube overnight and the next morning we clamped his NG tube. He had minimal residual. We pulled the NG tube and started him on a clear liquid diet. The next day we advance him to regular diet and he had breakfast and lunch without any difficulty or a bdominal pain. It is unclear why he developed this transition point in the small bowel. Outpatient workup could consist of small bowel follow-through or enteroclysis if symptoms return. We have asked him to see his primary care provider in follow-up and to do a low residue diet for the next 1 to 2 weeks.He was followed by general surgery during his stay and they saw him on a daily basis and we had daily discussions about his progress and treatment. At discharge temperature is 36.7. Heart rate 61. Blood pressure 138/83. Respirations 16. 96% on room air. He is a 5 foot 7 inch male, 79 kg. Well- nourished well-developed. Pleasant, alert, oriented to person place time and situation. Neck is supple. Lungs are clear. Regular rate and rhythm. Abdomen is no longer distended, soft, nontender, normal bowel sounds. He did have a bowel movement today. - ALLERGIES Allergies/Adverse Reactions: Allergies Allergy/AdvReac Type Severity Reaction Status Date / Time No Known Drug Allergies Allergy Verified 07/14/18 09:53 - MEDICATIONS Home Medications: Ambulatory Orders Medication Instructions Recorded Confirmed No Known Home Medications 07/14/18 07/14/18 - LABS Result Diagrams: 09/27/23 05:24 09/27/23 05:24"
== END 2023-09-27 14:52 | disposition home or self-care (01) | DRG 389 ==
LOC: ED 08:33 → MS2 09-25 09:15
PROVIDERS: ADMIT Internal Medicine; ATTEND Specialist
DX: K56.609 Unspecified intestinal obstruction, unspecified as to partial versus complete obstruction (principal); N13.30 Unspecified hydronephrosis; K57.30 Diverticulosis of large intestine without perforation or abscess without bleeding
CPT/HCPCS: 36415; 74018; 74177; 80048; 80053; 83605; 83690; 84484; 85025; 93005; 96365; 96375; 99285; A9270; J0131; J2060; J7120; Q9967

== ENCOUNTER 2024-01-22 10:43 | Outpatient (CLI) | payer MEDICARE, BC ==
--- NOTE | 2024-01-22 17:08 | Ultrasound Report ---
PROCEDURE: Ankle Brachial Index INDICATIONS: CLAUDICATION TECHNIQUE: Ankle-brachial indices were obtained bilaterally and recorded. COMPARISONS: None. FINDINGS: Right brachial: 119 mmHg Right ankle: 145 mmHg Right ankle brachial index (HELDER): 1.2 Left brachial: ): 125mmHg Left ankle: ): 137mmHg Left ankle brachial index (HELDER): 1.1 Triphasic waveforms in the bilateral posterior tibial and dorsalis pedis arteries. Healing potential: Ankle pressures >55 mm Hg in non-diabetics and >80 mm Hg in diabetics are likely to achieve primary h ealing of ischemic foot ulcers. Toe pressures >30 mm Hg are likely to achieve primary healing of ischemic foot ulcers, toe or transme tatarsal amputations. IMPRESSION: 1.Resting HELDER is normal and the right 1.2 and normal on the left at 1.1. 2.Triphasic waveforms in the bilateral posterior tibial arteries and dorsalis pedis arteries. Reviewed by: Edmar Kong MD on 01/22/2024 5:07 PM PDT Approved by: Edmar Kong MD on 01/22/2024 5:07 PM PDT Station ID: [id number]
== END 2024-01-22 10:44 | disposition home or self-care (01) ==
LOC: DI 10:43
PROVIDERS: ATTEND Registered Nurse
DX: M48.062 Spinal stenosis, lumbar region with neurogenic claudication (principal)
CPT/HCPCS: 93922